=== PATIENT | female | born 1985 | race Caucasian/White ===

== ENCOUNTER 2024-03-27 22:03 | Emergency (ER) | payer BC, SELFPAY ==
[2024-03-27 22:05] VITALS: BP 141/104; PULSE 113; RESP 16; TEMP 36.4; O2SAT 100
--- NOTE | 2024-03-27 22:08 | ECG_ITS ---
Test Date: 2024-03-27 22:18:37 Measurements Intervals [place] Rate: 97 P: 78 ID: [id number] QRS: 64 QRSD: 84 T: 51 QT: 346 QTc: 440 Interpretive Statements SINUS RHYTHM POSSIBLE LEFT ATRIAL ENLARGEMENT [-0.1mV P WAVE IN V1/V2] No previous ECG available for comparison Electronically Signed On 03-31-2024 17:51:59 TECHNOLOGY INFUSION SPECIALIST by Lyndsey Austin M.D.
[2024-03-28 02:07] VITALS: BP 147/72; PULSE 78; RESP 14; O2SAT 100
== END 2024-03-28 02:15 | disposition left against medical advice (07) ==
PROVIDERS: Emergency Provider Emergency Medicine
DX: R42 Dizziness and giddiness (principal)
CPT/HCPCS: 93005; 99199